=== PATIENT | female | born 2000 | race Caucasian/White ===

== ENCOUNTER 2020-02-12 18:38 | Emergency (ER) | payer OTHER ==
[~2020-02-12] VITALS: Ht 157.5 cm; Wt 54.0 kg
[2020-02-12] MEDS ORDERED: IBUPROFEN 600MG TABLET PO ONE (19:45)
[2020-02-12 21:44] VITALS: BP 129/74
== END 2020-02-12 21:44 | disposition home or self-care (01) ==
LOC: ER 18:38
DX: R51.9 Headache, unspecified (principal); M54.2 Cervicalgia; Z88.0 Allergy status to penicillin
CPT/HCPCS: 81025; 99284